=== PATIENT | female | born 1955 | race African-American/Black ===

== ENCOUNTER 2019-01-09 16:05 | Emergency (ER) | payer OTHER ==
[~2019-01-09] VITALS: Ht 165.1 cm; Wt 65.0 kg
[2019-01-09] MEDS ORDERED: NITROGLYCERIN 2% 1 GM OINT PKT TD STA (16:11)
[2019-01-09 16:13] VITALS: Ht 165.1 cm; Wt 65.0 kg
[2019-01-09] MEDS ORDERED: NITROGLYCERIN (SL) 0.4 MG TAB SL PRN (16:30)
[2019-01-09] MEDS ORDERED: INSULIN LISPRO 100 UNIT/ML VIAL SC ONE (17:00)
[2019-01-09] MEDS ORDERED: ACCU-CHEK XX ONE (17:00)
[2019-01-09] MEDS ORDERED: TRAZ-111 PO (17:09)
[2019-01-09] MEDS ORDERED: GABA300C16 PO (17:09)
[2019-01-09] MEDS ORDERED: ATOR-2 PO (17:10)
[2019-01-09] MEDS ORDERED: LISI40TA3 PO (17:10)
[2019-01-09] MEDS ORDERED: INSU100C SQ (17:11)
[2019-01-09] MEDS ORDERED: INSU100I33 SC (17:11)
[2019-01-09] MEDS ORDERED: ACET-141 PO (17:12)
[2019-01-09] MEDS ORDERED: SITA25TA3 PO (17:12)
[2019-01-09] MEDS ORDERED: IBUP-1982 PO (17:13)
[2019-01-09] MEDS ORDERED: ASPI-817 PO (17:13)
[2019-01-09] MEDS ORDERED: PANT40TA4 PO (17:14)
[2019-01-09] MEDS ORDERED: NITR0.4T32 SL (17:14)
--- NOTE | 2019-01-09 17:31 | ERD ---
ER Documentation Chief Complaint Chief Complaint CP X "a few days" worse now 10/10 pain HPI Patient is a 63-year-old female with coronary disease, hypertension, and diabetes as well as smoking who presents with chest pain. The patient was brought in by ambulance. She has had chest pain for the past 2 days. She said that it substernal with no radiation. It sharp and she feels like a tightness. The patient was given aspirin and nitroglycerin x3 by paramedics. She does not remember the name of her primary doctor. ROS All systems reviewed and are negative except as per history of present illness. Medications Home Meds Reported Medications Pantoprazole* (Pantoprazole*) 40 Mg Tablet.dr, 40 MG PO AC BREAKFAST, TAB 01/09/19 Nitroglycerin* (Nitroglycerin* SL) 0.4 Mg Tab.subl, 0.4 MG SL Q5MIN PRN for CHEST PAIN, BOTTLE 01/09/19 Aspirin* (Aspirin* EC) 81 Mg Tablet.dr, 81 MG PO DAILY, TAB 01/09/19 Ibuprofen* (Ibuprofen*) 200 Mg Capsule, 400 MG PO Q6, CAP 01/09/19 Acetaminophen* (Acetaminophen*) 500 MG Extra Strength Tablet, 1000 MG PO Q6H PRN for PAIN AND OR ELEVATED TEMP, TAB 01/09/19 Sitagliptin* (Januvia*) 25 Mg Tablet, 25 MG PO DAILY, #30 TAB 01/09/19 Insulin Glargine,Hum.rec.anlog (Basaglar Kwikpen U-100) 100 Unit/1 Ml Insuln.pen, 20 UNIT SC DAILY, EA 01/09/19 Insulin Lispro (Humalog) 100 Unit/1 Ml Cartridge, 0 SQ SLIDING SCALE, EA 01/09/19 Lisinopril* (Lisinopril*) 40 Mg Tablet, 40 MG PO DAILY, #30 TAB 01/09/19 Atorvastatin* (Atorvastatin*) 80 Mg Tablet, 80 MG PO QHS, #30 TAB 01/09/19 Gabapentin* (Gabapentin*) 300 Mg Capsule, 300 MG PO QHS, #60 CAP 01/09/19 Trazodone Hcl* (Trazodone Hcl*) 50 Mg Tablet, 50 MG PO QHS, #30 TAB 01/09/19 Allergies Allergies: Coded Allergies: No Known Allergy (Unverified , 01/09/19) PMhx/Soc History of Surgery: Yes (cardiac stent x1) Anesthesia Reaction: No Hx Neurological Disorder: No Hx Respiratory Disorders: No Hx Cardiac Disorders: Yes (htn, cardiac stentx1, heart attack x2) Hx Psychiatric Problems: No Hx Miscellaneous Medical Probl: No Hx Alcohol Use: Yes Hx Substance Use: Yes Hx Tobacco Use: Yes Smoking Status: Current every day smoker FmHx Family History: coronary disease Physical Exam Vitals Vital Signs Date Temp Pulse Resp B/P (MAP) Pulse Ox O2 O2 Flow FiO2 Time Delivery Rate 01/09/19 98.0 85 18 142/93 97 16:13 (109) Physical Exam Const: No acute distress Head: Atraumatic Eyes: Normal Conjunctiva ENT: Normal External Ears, Nose and Mouth. Neck: Full range of motion. No meningismus. Resp: Clear to auscultation bilaterally Cardio: Regular rate and rhythm, no murmurs Abd: Soft, non tender, non distended. Normal bowel sounds Skin: No petechiae or rashes Back: No midline or flank tenderness Ext: No cyanosis, or edema Neur: Awake and alert Psych: Normal Mood and Affect Result Diagram: 01/09/19 1627 01/09/19 1627 Results 24 hrs Laboratory Tests Test 01/09/19 16:27 01/09/19 17:16 White Blood Count 7.2 10^3/ul Red Blood Count 4.04 10^6/ul Hemoglobin 10.5 g/dl Hematocrit 33.9 % Mean Corpuscular Volume 83.9 fl Mean Corpuscular Hemoglobin 26.0 pg Mean Corpuscular Hemoglobin Concent 31.0 g/dl Red Cell Distribution Width 16.2 % Platelet Count 334 10^3/UL Mean Platelet Volume 9.8 fl Immature Granulocytes % 0.300 % Neutrophils % 60.4 % Lymphocytes % 26.3 % Monocytes % 9.3 % Eosinophils % 3.1 % Basophils % 0.6 % Nucleated Red Blood Cells % 0.0 /100WBC Immature Granulocytes # 0.020 10^3/ul Neutrophils # 4.4 10^3/ul Lymphocytes # 1.9 10^3/ul Monocytes # 0.7 10^3/ul Eosinophils # 0.2 10^3/ul Basophils # 0.0 10^3/ul Nucleated Red Blood Cells # 0.0 10^3/ul Sodium Level 137 mmol/L Potassium Level 4.5 mmol/L Chloride Level 102 mmol/L Carbon Dioxide Level 29 mmol/L Anion Gap 6 Blood Urea Nitrogen 26 mg/dl Creatinine 1.13 mg/dl Est Glomerular Filtrat Rate mL/min 58 mL/min Glucose Level 448 mg/dl Calcium Level 9.3 mg/dl Troponin I < 0.012 ng/ml Bedside Glucose 414 mg/dL Current Medications Medications Dose Sig/Candido Start Time Status Last (Trade) Ordered Route PRN Stop Time Admin Dose Reason Admin 1 inch ONCE STAT 01/09/19 DC 01/09/19 Nitroglycerin TD 16:11 16:32 01/09/19 16:12 (Nitroglyceri n 2% Oint) 1 tab Q5M UP TO 3 01/09/19 Nitroglycerin DOSES PRN 16:30 SL .CHEST (Nitroglyceri PAIN n (Sl Tab) 0.4 Mg) Insulin 20 unit ONCE ONCE 01/09/19 01/09/19 Human SC 17:00 17:23 Lispro 01/09/19 17:01 (Humalog) Diagnostic 1 ea 2 HRS AFTER 01/09/19 Test (Pha) HUMALOG ONCE 17:00 (Accu-Chek) XX 01/09/19 17:01 Procedures/MDM EKG read by me: Rate/Rhythm: Left bundle branch at a regular rate Intervals: Normal Impression: Left bundle elvia block with negative Sgarbossa criteria Chest x-ray negative for pneumonia or pneumothorax per radiology. Smoking Cessation Therapy: Pt. was lectured for greater than 3 minutes on the health risks of continued smoking and the benefits of cessation. Patient is a 63-year-old female with multiple cardiac risk factors presents with chest pain. I am concerned for potential acute coronary syndrome. I doubt pneumonia, pneumothorax, pulmonary embolism, or aortic dissection. The patient will be transferred based on insurance being capitated to [facility]. I am awaiting to speak to a doctor call for the hospital. Departure Diagnosis: Primary Impression: Chest pain Chest pain type: unspecified Qualified Codes: R07.9 - Chest pain, unspecified Additional Impression: Hyperglycemia Condition: JOSUE Pisano MD Jan 09, 2019 17:31
[2019-01-09 21:14] VITALS: BP 119/69; PULSE 85; RESP 19
== END 2019-01-09 21:10 | disposition short-term general hospital (02) ==
LOC: E/R 16:05
DX: R07.9 Chest pain, unspecified (principal); I10 Essential (primary) hypertension; E11.65 Type 2 diabetes mellitus with hyperglycemia; F17.210 Nicotine dependence, cigarettes, uncomplicated; I25.10 Atherosclerotic heart disease of native coronary artery without angina pectoris; Z98.61 Coronary angioplasty status; Z79.82 Long term (current) use of aspirin; Z79.4 Long term (current) use of insulin
CPT/HCPCS: 36415; 71045; 80048; 82962; 84484; 85025; 93005; J1815; Z7502; Z7610